=== PATIENT | female | born 1985 | race Caucasian/White ===

== ENCOUNTER 2016-07-31 20:02 | Emergency (ER) | payer OTHER, BC | END 2016-07-31 21:24 | disposition home or self-care (01) | LOC: ED 20:02 | DX: S00.83XA Contusion of other part of head, initial encounter (principal); V49.40XA Driver injured in collision with unspecified motor vehicles in traffic accident, initial encounter; Y92.410 Unspecified street and highway as the place of occurrence of the external cause ==